=== PATIENT | female | born 1965 | race Caucasian/White ===

== ENCOUNTER 2018-03-10 18:20 | Emergency (ER) | payer MEDICAID ==
[~2018-03-10] VITALS: Ht 167.6 cm; Wt 65.3 kg
--- NOTE | 2018-03-10 19:32 | NUR ---
Dr. Elmore at bedside for MSE.
--- NOTE | 2018-03-10 19:55 | NUR ---
Patient discharged to home in stable conditon. Written and verbal after care instructions given. Patient verbalizes understanding of instructions. Patient ambulated out of ER with steady gait, no acute signs of distress, VSS, all belongings taken.
[2018-03-10 19:59] VITALS: BP 143/84
== END 2018-03-10 19:59 | disposition home or self-care (01) ==
LOC: ER 18:22
DX: H92.02 Otalgia, left ear (principal)
CPT/HCPCS: 99283; A4663

== ENCOUNTER 2018-06-10 10:04 | Emergency (ER) | payer MEDICAID ==
[~2018-06-10] VITALS: Ht 160 cm; Wt 59.0 kg
[2018-06-10 10:56] LABS: *BILIRUBIN,URIN NEGATIVE (NEGATIVE); *BLOOD, URINE 3+ (NEGATIVE); *COLOR,URINE PINK (YELLOW); *KETONES,URINE NEGATIVE (NEGATIVE); *PROTEIN,URINE NEGATIVE (NEGATIVE); *UROBILINOGEN,URINE 0.2 E.U./dl (NORMAL); LEUKOCYTE ESTERASE ,URINE 2+ (NEGATIVE); NITRITE, URINE NEGATIVE (NEGATIVE); PH,URINE 6.5 (5.0-8.0); UGLUCOSE NEGATIVE (NEGATIVE)
[2018-06-10 11:03] LABS: *CLARITY,URINE HAZY (CLEAR)
[2018-06-10 11:13] LABS: BACTERIA,URINE NONE SEEN /HPF (NONE SEEN); SQUAMOUS EPITHELIAL CELL,UR FEW /HPF (NONE SEEN); URINE AMORPHOUS PHOSPHATES FEW /HPF
[2018-06-10 11:15] LABS: MUCUS,URINE FEW /LPF (0-FEW)
--- NOTE | 2018-06-10 12:10 | NUR ---
Patient discharged to home in stable conditon. Written and verbal after care instructions given. Patient verbalizes understanding of instructions.
== END 2018-06-10 12:11 | disposition home or self-care (01) ==
LOC: ER 10:04
DX: N39.0 Urinary tract infection, site not specified (principal)
CPT/HCPCS: 76770; 87086; A4663